=== PATIENT | female | born 1980 | race Caucasian/White ===

== ENCOUNTER → 2017-04-29 | Outpatient (CLI) | payer OTHER ==
[~2017-04-29] MED LIST: ACET500 PO; ALBU90OI INH; ALBU90OI6 INH; AMOX500 PO; AZIT250 PO; Amoxicillin875 MG PO; BENADRYL25 MG PO; BUPR150ER PO; BUPR150T2 PO; BUPR75; BUSP15 PO; Bactrim Ds Tab1 EACH PO; CETI10 PO; CLARITIN10 MG PO; CRUTCH4 USE; CYCL10 PO; Cefpodoxime Pr100 MG PO; Crutch1 EACH MISC; DIPH50 PO; DOXY100 PO; EPIPEN; Epipen0.3 MG/0.3 IM; FAMO20 PO; FLUSAL2505 IH; FLUT1DIS2; GABA100; GABA300 PO; HYDACE10B PO; HYDACE5; HYDACE5 PO; HYDR1TAB94 PO; IBUHYD PO; IBUP600 PO; IBUP800 PO; KETO10 PO; LACT10SY PO; METR500 PO; MUPI2TC TOP; NAPR500; NAPR500 PO; NYST237S MT; Norco 10-325 T1 EACH PO; Norco 5-325 Ta1 EACH PO; OTC MEDS; OXYACE5T PO; PARO10; PAROEX473 ML MM; PENVK500 PO; PHENA200 PO; PRED20 PO; PROACE100; PROACE100 PO; PROCODE120 PO; PROM25 PO; Pepcid40 MG PO; Prednisone20 MG PO; Pyridium200 MG PO; RXHYDACE PO; RXOXYACE PO; RXPHEN200 PO; Robaxin-750750 MG PO; SULTRIDS PO; SULTRISS PO; TRAM50; TRAM50 PO; TRAZ100 PO; TRAZ50 PO; TRIA80TC TOP; Ultram50 MG PO; Veetids 500500 MG PO; Ventolin/Prove6.7 GM INH; WELLBUTRIN PO; [UNRECOGNIZED DRUG - REMARK]
[2017-05-03 11:12] LABS: HPV Genotype 16 Not Detected (NOTDET); HPV Genotype 18 Not Detected (NOTDET)
[2017-05-05 09:18] LABS: HPV High Risk Other Not Detected (NOTDET)
== END | disposition home or self-care (01) ==
LOC: LAB 11:10
PROVIDERS: Obstetrics & Gynecology
DX: Z01.419 Encounter for gynecological examination (general) (routine) without abnormal findings (principal)
CPT/HCPCS: 87624; G0123

== ENCOUNTER → 2017-06-20 | Outpatient (CLI) | payer OTHER ==
[2017-06-22 14:27] LABS: Codeine Not Detected (NOTDET); Hydrocodone 99 ng/mL (NOTDET); Hydromorphone Not Detected (NOTDET); Morphine Not Detected (NOTDET); Norhydrocodone 159 ng/mL (NOTDET); Noroxycodone Not Detected (NOTDET)
== END ==
LOC: LAB SRC 09:57
PROVIDERS: Physician Assistant
DX: M23.91 Unspecified internal derangement of right knee (principal); G57.02 Lesion of sciatic nerve, left lower limb
CPT/HCPCS: G0480

== ENCOUNTER 2017-07-11 07:10 | Emergency (ER) | payer OTHER ==
[~2017-07-11] VITALS: Ht 162.6 cm; Wt 92.5 kg
[~2017-07-11 07:10] MED LIST changes: -ALBU90OI6 INH; -Amoxicillin875 MG PO; -CLARITIN10 MG PO; -Cefpodoxime Pr100 MG PO; -EPIPEN; -FLUT1DIS2; -KETO10 PO; -NYST237S MT; -PAROEX473 ML MM; -Pepcid40 MG PO; -TRAZ100 PO
[2017-07-11 08:09] LABS: Source, Urine Clean Catch
[2017-07-11 08:13] LABS: Bilirubin, Urine Neg (Neg); Blood, Urine 1+ (Neg); Glucose Qualitative, Urine Neg (Neg); Ketones, Urine Neg (Neg); Leukocyte Esterase, Urine 1+ (Neg); Nitrite, Urine Neg (Neg); Protein, Urine Neg (Neg); Specific Gravity, Urine 1.025 (1.003-1.022); Urobilinogen, Urine NORM (Normal)
[2017-07-11 08:21] LABS: Appearance, Urine Cloudy (Clear); Color, Urine Yellow (P-Yellow)
[2017-07-11 08:22] LABS: Squamous Epithelial Cells Many /hpf (Few)
[2017-07-11 08:23] LABS: Bacteria Many /hpf; Red Blood Cells, Urine 0-2 /hpf (0-2)
[2017-07-11] MEDS ORDERED: Cefpodoxime Pr100 MG PO (08:54)
[2017-07-11] MEDS ORDERED: Pyridium200 MG PO (08:54)
[2018-03-09] MEDS ORDERED: Ultram50 MG PO (08:43)
[2018-03-09] MEDS ORDERED: CYCL10 PO (08:43)
== END 2017-07-11 09:08 | disposition home or self-care (01) ==
LOC: ER 07:10
PROVIDERS: Emergency Medicine
DX: N39.0 Urinary tract infection, site not specified (principal); Z91.018 Allergy to other foods; Z79.899 Other long term (current) drug therapy; Z79.891 Long term (current) use of opiate analgesic; J45.909 Unspecified asthma, uncomplicated; F32.9 Major depressive disorder, single episode, unspecified; F17.210 Nicotine dependence, cigarettes, uncomplicated; Z85.41 Personal history of malignant neoplasm of cervix uteri
CPT/HCPCS: 81001; 81025; 87086; 96372; 99283; J1885

== ENCOUNTER 2017-11-10 12:16 | Emergency (ER) | payer OTHER ==
[~2017-11-10] VITALS: Ht 160 cm; Wt 94.3 kg
[~2017-11-10 12:16] MED LIST changes: +Cefpodoxime Pr100 MG PO
[2017-11-10] MEDS ORDERED: Amoxicillin875 MG PO (12:54)
[2017-11-10] MEDS ORDERED: NYST237S MT (12:54)
[2017-11-10] MEDS ORDERED: PAROEX473 ML MM (12:54)
[2017-11-10] MEDS ORDERED: IBUP800 PO (13:15)
[2017-11-10] MEDS ORDERED: CYCL10 PO (13:16)
== END 2017-11-10 13:38 | disposition home or self-care (01) ==
LOC: ER 12:16
DX: K02.9 Dental caries, unspecified (principal); Z91.048 Other nonmedicinal substance allergy status; Z79.899 Other long term (current) drug therapy; J45.909 Unspecified asthma, uncomplicated; F17.210 Nicotine dependence, cigarettes, uncomplicated
CPT/HCPCS: 99282

== ENCOUNTER 2017-11-13 13:32 | Emergency (ER) | payer OTHER ==
[~2017-11-13] VITALS: Ht 162.6 cm; Wt 94.3 kg
[~2017-11-13 13:32] MED LIST changes: +Amoxicillin875 MG PO; +NYST237S MT; +PAROEX473 ML MM
[2017-11-13] MEDS ORDERED: Ultram50 MG PO (14:57)
== END 2017-11-13 15:16 | disposition home or self-care (01) ==
LOC: ER 13:32
DX: S60.011A Contusion of right thumb without damage to nail, initial encounter (principal); J45.909 Unspecified asthma, uncomplicated; F32.9 Major depressive disorder, single episode, unspecified; F17.210 Nicotine dependence, cigarettes, uncomplicated; Z91.018 Allergy to other foods; Z79.899 Other long term (current) drug therapy; W23.0XXA Caught, crushed, jammed, or pinched between moving objects, initial encounter
CPT/HCPCS: 29125; 73100; 73140; 99283-25

== ENCOUNTER 2017-12-11 12:31 | Emergency (ER) | payer OTHER ==
[~2017-12-11] VITALS: Ht 160 cm; Wt 94.3 kg
[2017-12-11] MEDS ORDERED: KETO10 PO (12:56)
[2017-12-11] MEDS ORDERED: CLARITIN10 MG PO (12:56)
[2017-12-11] MEDS ORDERED: Prednisone20 MG PO (12:56)
[2017-12-11] MEDS ORDERED: Pepcid40 MG PO (12:56)
[2017-12-11] MEDS ORDERED: BENADRYL25 MG PO (13:18)
[2017-12-11] MEDS ORDERED: ALBU90OI6 INH (13:18)
[2017-12-11] MEDS ORDERED: TRAZ100 PO (13:18)
[2017-12-11] MEDS ORDERED: EPIPEN (13:19)
[2017-12-11] MEDS ORDERED: FLUT1DIS2 (13:20)
== END 2017-12-11 13:40 | disposition home or self-care (01) ==
LOC: ER 12:31
DX: T63.441A Toxic effect of venom of bees, accidental (unintentional), initial encounter (principal); J45.909 Unspecified asthma, uncomplicated; F32.9 Major depressive disorder, single episode, unspecified; F17.210 Nicotine dependence, cigarettes, uncomplicated; Z91.018 Allergy to other foods; Z79.899 Other long term (current) drug therapy
CPT/HCPCS: 96372; 99282; J1100; J1885

== ENCOUNTER 2018-05-01 07:34 | Emergency (ER) | payer OTHER ==
[~2018-05-01] VITALS: Ht 162.6 cm; Wt 94.3 kg
[~2018-05-01 07:34] MED LIST changes: +ALBU90OI6 INH; +CLARITIN10 MG PO; +EPIPEN; +FLUT1DIS2; +KETO10 PO; +Pepcid40 MG PO; +TRAZ100 PO
== END 2018-05-01 08:09 | disposition home or self-care (01) ==
LOC: ER 07:34
DX: M25.511 Pain in right shoulder (principal); R03.0 Elevated blood-pressure reading, without diagnosis of hypertension; Z88.8 Allergy status to other drugs, medicaments and biological substances; Z79.899 Other long term (current) drug therapy; F17.210 Nicotine dependence, cigarettes, uncomplicated
CPT/HCPCS: 96372; 99283-25; J1100; J1885

== ENCOUNTER 2018-05-30 07:34 | Inpatient (IN) | payer OTHER ==
[~2018-05-30] VITALS: Ht 162.6 cm; Wt 105.5 kg
[2018-05-30 08:15] LABS: BASOPHILS ABSOLUTE AUTO 0.03 K/mm3 (0.00-0.23); BASOPHILS PERCENT AUTO 0 % (0-2); EOSINOPHILS PERCENT AUTO 2 % (0-6); Hematocrit 37.4 % (33.0-51.0); Hemoglobin 12.5 g/dL (11.5-16.0); IMMATURE GRAN ABSOLUTE AUTO 0.06 K/mm3 (0.00-0.10); IMMATURE GRAN PERCENT AUTO 0 % (0-1); LYMPHOCYTES PERCENT AUTO 16 % (21-46); MONOCYTES PERCENT AUTO 8 % (4-13); Mean Corpuscular HGB 31.6 pg (26.0-34.0); Mean Corpuscular HGB Conc 33.4 g/dL (31.5-36.5); Mean Corpuscular Volume 94 fL (80-100); Mean Platelet Volume 11.1 fL (9.1-12.4); NEUTROPHILS ABSOLUTE AUTO 9.96 K/mm3 (1.96-9.15); NEUTROPHILS PERCENT AUTO 74 % (41-73); Platelet Count 198 K/mm3 (150-400); RDW Coefficient Variation 12.9 % (11.7-14.2); RDW Standard Deviation 44.8 fL (35.1-46.3); Red Blood Cell Count 3.96 M/mm3 (3.80-5.20); White Blood Cell Count 13.55 K/mm3 (4.00-11.30)
[2018-05-30 08:31] LABS: Source, Urine Catheter
[2018-05-30 08:33] LABS: Bilirubin, Urine Neg (Neg); Blood, Urine 2+ (Neg); Glucose Qualitative, Urine Neg (Neg); Ketones, Urine Neg (Neg); Leukocyte Esterase, Urine 3+ (Neg); Nitrite, Urine Neg (Neg); Protein, Urine Neg (Neg); Specific Gravity, Urine 1.005 (1.003-1.022); Urobilinogen, Urine NORM (Normal); pH, Urine 6.5 (5.0-8.0)
[2018-05-30 08:37] LABS: Appearance, Urine Clear (Clear); Color, Urine Yellow (P-Yellow)
[2018-05-30 08:37] LABS: Alanine Aminotransfer (ALT/SGP 83 U/L (12-78); Albumin, Blood 3.6 g/dL (3.4-5.0); Alk Phos 113 U/L (50-136); Anion Gap 7 mmol/L (6-16); Aspartate Aminotrans (AST/SGOT 37 U/L (12-37); Bilirubin, Total 0.8 mg/dL (0.1-1.0); Blood Urea Nitrogen 10 mg/dL (8-24); Bun/Creatinine Ratio 13.4 (12.0-20.0); CO2, Blood 25 mmol/L (21-32); Calcium, Blood 8.2 mg/dL (8.5-10.1); Chloride, Blood 103 mmol/L (98-108); Creatinine, Blood 0.75 mg/dL (0.40-1.00); Globulin, Blood 3.7 g/dL (2.2-4.0); Glomerular Filtration Rate >60 (60-); Glucose, Blood 104 mg/dL (70-99); Potassium, Blood 3.5 mmol/L (3.5-5.5); Sodium, Blood 135 mmol/L (136-145); Total Protein, Blood 7.3 g/dL (6.4-8.2)
[2018-05-30] MEDS ORDERED: MELO7.5 PO (08:46)
[2018-05-30 08:50] LABS: White Blood Cells, Urine TNTC /hpf (0-5)
[2018-05-30 08:51] LABS: Bacteria Mod /hpf; Squamous Epithelial Cells Mod /hpf (Few); Transitional Epithelial Cells Few /hpf (0-Rare)
[2018-05-30 09:25] LABS: Influenza A Negative (NEGATIVE); Influenza B Negative (NEGATIVE)
--- NOTE | 2018-05-30 10:20 | NUR ---
PT. ARRIVED TO FLOOR FROM ER. PT. CAME TO FLOOR WITH A LACTIC ACID OF 15.7, IN PAIN AND WITHOUT ANY MEDS AT ALL. TRIED TO CALL DR. FLEMING FOR MEDS AND CALL WENT TO VOICE MAIL. SETTLED PT. IN BED AND VITALS TAKEN. BP VERY HIGH AND STILL NO ORDERS OR UNABLE TO GET A HOLD OF DR. FLEMING. PT. HAS 1LITER OF LACTATED RINGERS BOLUSING.
--- NOTE | 2018-05-30 16:02 | NUR ---
PATIENT GAVE PERMISSION TO CLARIFIER OPERATOR HELPER TO PROVIDE CARE ON 05/31/2018.
--- NOTE | 2018-05-30 18:21 | NUR ---
PT. SITTING IN BED EATING DINNER, PT. REPORTS UNRESOLVED PAIN, DR. FLEMING MADE AWARE BUT HAS NOT ORDERED ANY THING ELSE FOR PAIN. BP IS STILL ELEVATED WITHOUT MEDICATION TO COVER. WILL NOTIFY DR. FLEMING ONCE AGAIN. NO OTHER NOTEABLE CHANGES THIS SHIFT.
[2018-05-31 05:13] LABS: BASOPHILS ABSOLUTE AUTO 0.05 K/mm3 (0.00-0.23); BASOPHILS PERCENT AUTO 0 % (0-2); EOSINOPHILS ABSOLUTE AUTO 0.28 K/mm3 (0.00-0.68); EOSINOPHILS PERCENT AUTO 2 % (0-6); Hematocrit 37.4 % (33.0-51.0); Hemoglobin 12.1 g/dL (11.5-16.0); IMMATURE GRAN ABSOLUTE AUTO 0.07 K/mm3 (0.00-0.10); IMMATURE GRAN PERCENT AUTO 1 % (0-1); LYMPHOCYTES PERCENT AUTO 21 % (21-46); MONOCYTES PERCENT AUTO 7 % (4-13); Mean Corpuscular HGB Conc 32.4 g/dL (31.5-36.5); Mean Corpuscular Volume 96 fL (80-100); NEUTROPHILS ABSOLUTE AUTO 7.95 K/mm3 (1.96-9.15); NEUTROPHILS PERCENT AUTO 69 % (41-73); RDW Coefficient Variation 12.8 % (11.7-14.2); White Blood Cell Count 11.55 K/mm3 (4.00-11.30)
[2018-05-31 05:18] LABS: Mean Platelet Volume 11.4 fL (9.1-12.4); Platelet Count 149 K/mm3 (150-400)
[2018-05-31 05:36] LABS: Anion Gap 6 mmol/L (6-16); Blood Urea Nitrogen 9 mg/dL (8-24); Bun/Creatinine Ratio 13.1 (12.0-20.0); CO2, Blood 27 mmol/L (21-32); Calcium, Blood 8.4 mg/dL (8.5-10.1); Chloride, Blood 105 mmol/L (98-108); Creatinine, Blood 0.69 mg/dL (0.40-1.00); Glomerular Filtration Rate >60 (60-); Glucose, Blood 93 mg/dL (70-99); Potassium, Blood 3.9 mmol/L (3.5-5.5); Sodium, Blood 138 mmol/L (136-145)
--- NOTE | 2018-05-31 05:40 | NUR ---
SHIFT SUMMARY PT ADMITTED WITH SEPSIS UTI. FULL CODE. REGULAR DIET. 20G IV TO R HAND. INDEPENDENT. MEDS WHOLE WITH WATER. AT BEDSIDE. THE PT PRESENTED TO THE ED WITH GENERALIZED BODY ACHES AND WEAKNESS FOR THE PAST FEW DAYS. THE PT REPORTED DYSURIA, URGENCY, FREQUENCY AND PAIN. THE PT IS POSITIVE FOR RECURRENT UTI'S WITH LAS ONE ABOUT 1.5 WEEKA AGO. PT DIAGNOSED WITH SEVERE SEPSIS SECONDARY TO UTI WITH A LACTIC OF 15.6 UPON ADMIT. PT DID VOICE SOME CONCEARNS REGARDING MEDICATIONS AND MULTIPLE CHANGES THAT NEEDED TO BE MADE. ADVISED PT TO DISCUSS WITH MD IN THE AM. PT APPEARED TO SLEEP COMFORTABLY MOST OF THE NIGHT. PT AWAKE AT THIS TIME AND APPEARS UPSET BECAUSE NORCO NOT DUE AND ONLY OFFERED Q6. OFFERED PT WARM BLANKET AND PT REFUSED, OFFERED PT IBUPROFEN PER ORDERS AND PT INITIALLY REFUSED BUT EVENTUALLY WAS AGREEABLE. PT APPEARED ONLY TO WANT TO TAKE NARCOTICS. ALSO OFFERED PRN MUSCLE RELAXER WHICH PT AGAIN REFUSED. NO APPARENT SIGNS OF ACUTE DISTRESS. ABLE TO MAKE NEEDS KNOWN AND CALL LIGHT IN REACH.
--- NOTE | 2018-05-31 05:48 | NUR ---
POSITIVE BLOOD CULTURE PT WITH GRAM POSITIVE BACILLI. PHARMACISTEVELYNE REPORTED THAT PTS CURRENT ANTIBIOTIC REGIMEN PROVIDES GOOD COVERAGE.
[2018-05-31] MEDS ORDERED: DULO30 PO (10:28)
[2018-05-31] MEDS ORDERED: BUPR150ER PO (10:29)
--- NOTE | 2018-05-31 17:20 | NUR ---
SHIFT SUMMARY- PT C/O GENERALIZED PAIN THAT IS THE MOST SEVERE IN HER LOWER BACK AND RLQ OF ABDOMEN. MEDS GIVEN PER EMAR. DR. FRANK INCREASED PT'S NORCO TO Q4HP. PT DENIES N/V. PT DENIES SOB. RESP E/U ON RA. PT'S BP THIS PM 161/103. PT REPORTS PAIN 10/10. HYDRALAZINE AND NORCO GIVEN PER EMAR. WILL CONTINUE TO MONITOR BP. PT'S MED REC UPDATED AND COMPLETE. PT INDEPENDENT IN THE ROOM AND HAS GONE OUTSIDE TO "GET SOME FRESH AIR" MULTIPLE TIMES THIS SHIFT. REMINDED PT IF SHE IS GOING TO SMOKE THAT SHE NEEDS TO REMOVE HER NICOTENE PATCH TO AVOID NICOTENE OVERDOSE. PT REPORTS SHE IS NOT SMOKING. PT'S AND TWO DAUGHTERS IN TO VISIT THIS PM. NO OTHER SIGNIFICANT CHANGES THIS SHIFT.
[2018-06-01 05:22] LABS: BASOPHILS ABSOLUTE AUTO 0.04 K/mm3 (0.00-0.23); BASOPHILS PERCENT AUTO 0 % (0-2); EOSINOPHILS PERCENT AUTO 4 % (0-6); Hemoglobin 12.2 g/dL (11.5-16.0); IMMATURE GRAN ABSOLUTE AUTO 0.06 K/mm3 (0.00-0.10); IMMATURE GRAN PERCENT AUTO 1 % (0-1); LYMPHOCYTES ABSOLUTE AUTO 3.17 K/mm3 (0.84-5.20); LYMPHOCYTES PERCENT AUTO 30 % (21-46); MONOCYTES ABSOLUTE AUTO 0.84 K/mm3 (0.16-1.47); MONOCYTES PERCENT AUTO 8 % (4-13); Mean Corpuscular HGB 31.1 pg (26.0-34.0); Mean Corpuscular Volume 94 fL (80-100); Mean Platelet Volume 10.8 fL (9.1-12.4); NEUTROPHILS ABSOLUTE AUTO 5.99 K/mm3 (1.96-9.15); NEUTROPHILS PERCENT AUTO 57 % (41-73); Platelet Count 214 K/mm3 (150-400); RDW Coefficient Variation 12.9 % (11.7-14.2); RDW Standard Deviation 44.5 fL (35.1-46.3); Red Blood Cell Count 3.92 M/mm3 (3.80-5.20)
--- NOTE | 2018-06-01 05:25 | NUR ---
SHIFT SUMMARY NO APPARENT ACUTE CHANGES. PAIN MANAGMENT APPARENTLY CONTINUES TO BE A PROBLEM DESPITE THE INCREASE OF NORCO FROM Q6 TO Q4. PT REQESTED TO HAVE HAVE ALL BEDTIME MEDICATIONS GIVEN AT THE SAME TIME PAIN PILL THAT WAS DUE AT 2044. THE PT WAS ABLE TO SLEEP UNTIL JUST BEFORE 0300 WHEN PT HIT CALL LIGHT FOR ADDITIONAL PAIN MEDICATION. ADMINISTERED NORCO AND ADVIL TOGETHER TO ADJUNCT AND PT DID APPEAR TO FALL BACK TO SLEEP. THE PT APPEARS TO BE SLEEPING COMFORTABLY AT THIS TIME WITH NO APPARENT SIGNS OF ACUTE DISTRESS. DAUGHTER AT PT BEDSIDE. ABLE TO MAKE NEEDS KNOWN AND CALL LIGHT IN REACH.
[2018-06-01 05:45] LABS: Albumin, Blood 3.4 g/dL (3.4-5.0); Anion Gap 8 mmol/L (6-16); Blood Urea Nitrogen 11 mg/dL (8-24); Bun/Creatinine Ratio 13.1 (12.0-20.0); CO2, Blood 28 mmol/L (21-32); Calcium, Blood 8.8 mg/dL (8.5-10.1); Chloride, Blood 103 mmol/L (98-108); Creatinine, Blood 0.84 mg/dL (0.40-1.00); Glomerular Filtration Rate >60 (60-); Glucose, Blood 105 mg/dL (70-99); Potassium, Blood 3.7 mmol/L (3.5-5.5); Sodium, Blood 139 mmol/L (136-145)
--- NOTE | 2018-06-01 18:16 | NUR ---
SHIFT SUMMARY PT HAS HAD NO ACUTE CHANGES THIS SHIFT, MEDICATED PER MAR FOR PAIN, PT REPORTS 7/10 PAIN AFTER MEDS T/O SHIFT. PT BEDRESTING AT THIS TIME W/DAUGHTER AT BEDSIDE, WILL CONT TO MONITOR UNTIL REPORT GIVEN TO NOC RN.
--- NOTE | 2018-06-02 04:06 | NUR ---
SHIFT SUMMARY: PT IS ALERT AND ORIENTED. PT IS CALM AND COOPERATIVE WITH CARE. PT CALLS APPROPRIATELY. PT IS INDEPENDENT IN THE ROOM. PT'S DAUGHTER IN THE ROOM OVERNIGHT. PT REPORTS PAIN ON SEVERAL OCCASIONS, MEDICATING PER EMAR. PT DENIES NAUSEA, VOMITING, AND SOB. POSSIBLE DC TODAY. NO ACUTE CHANGES OR COMPLICATIONS THIS SHIFT. BED IN LOW POSITION, CALL LIGHT WITHIN REACH. WILL REPORT TO DAY NURSE.
[2018-06-02] MEDS ORDERED: ACIDOPHILUS PR1 EAC1 PO (13:47)
[2018-06-02] MEDS ORDERED: Nicoderm Cq1 EAC1 TD (13:49)
[2018-06-02] MEDS ORDERED: LEVO750 PO (13:50)
[2018-06-02] MEDS ORDERED: TRAM50 PO (13:51)
--- NOTE | 2018-06-02 14:19 | NUR ---
SHIFT SUMMARY PT A&OX4. ANXIOUS AT TIME, BUT COOPERATIVE WITH CARE. PT RESTING IN BED DURING SHIFT. IND IN ROOM, PT UP WALKING T/O HALLS WITH FAMILY. PT REPORTS PAIN STARTING IN BACK AND RADIATING T/O BODY AND CRAMPING WHILE URINATING, NOTIFIED DR DELGADO, MEDICATED PER EMAR. PT DENIES SOB AND N/V DURING SHIFT. PT RECEIVING IV ANTIBIOTICS. ELEVATED BP, DR DELGADO NOTIFIED, NO NEW ORDERS, DISCUSSED BP WITH PT AT BEDSIDE, OTHER VSS. NO OTHER ACUTE CHANGES NOTED DURING SHIFT. PT/FAMILY EDUCATED ON DISCHARGE INSTRUCTIONS, MEDICATIONS AND FOLLOW UP APPOINTMENTS. MEDICATIONS FAXED TO [facility] PER PT REQUEST. PT LEFT ROOM VIA WHEELCHAIR AT 1413. PT STABLE UPON DISCHARGE.
== END 2018-06-02 14:16 | disposition home or self-care (01) | DRG 872 ==
LOC: ER 07:34 → MEDS 09:29 → ENPENDDIS 06-02 13:45 → MEDS 06-02 14:16
PROVIDERS: Emergency Medicine; Family Medicine; ADMIT Internal Medicine
DX: A41.51 Sepsis due to Escherichia coli [E. coli] (principal); N39.0 Urinary tract infection, site not specified; N12 Tubulo-interstitial nephritis, not specified as acute or chronic; E87.1 Hypo-osmolality and hyponatremia; R65.20 Severe sepsis without septic shock; I10 Essential (primary) hypertension; D69.6 Thrombocytopenia, unspecified; G62.9 Polyneuropathy, unspecified; F17.200 Nicotine dependence, unspecified, uncomplicated; E66.9 Obesity, unspecified; J45.909 Unspecified asthma, uncomplicated; K21.9 Gastro-esophageal reflux disease without esophagitis; F32.9 Major depressive disorder, single episode, unspecified; F41.9 Anxiety disorder, unspecified; G89.29 Other chronic pain; M54.40 Lumbago with sciatica, unspecified side; Z87.440 Personal history of urinary (tract) infections; Z91.018 Allergy to other foods; Z79.1 Long term (current) use of non-steroidal anti-inflammatories (NSAID); Z79.899 Other long term (current) drug therapy
CPT/HCPCS: 36415; 76770; 80048; 80053; 80069; 81001; 81025; 83605; 85025; 87040; 87077; 87086; 87186; 87804; 94760; 96365; 96366; 96375; 99285-25; J0360; J0696; J1885; J7030; J7120; P9612

== ENCOUNTER 2018-07-18 08:36 | Emergency (ER) | payer OTHER ==
[~2018-07-18] VITALS: Ht 165.1 cm; Wt 90.7 kg
[~2018-07-18 08:36] MED LIST changes: +ACIDOPHILUS PR1 EAC1 PO; +DULO30 PO; +LEVO750 PO; +MELO7.5 PO; +Nicoderm Cq1 EAC1 TD
[2018-07-18] MEDS ORDERED: MELO7.5 PO (09:08)
[2018-07-18 10:03] LABS: U Amphetamine Screen Not Detected; U Barbituate Screen Not Detected; U Benzodiazapine Screen Not Detected; U Buprenorphine Screen Not Detected; U Cannabinoids Screen Not Detected; U Cocaine Screen Not Detected; U Methadone Screen Not Detected; U Methamphetamine Screen Not Detected; U Opiates Screen Not Detected; U Oxycodone Screen Not Detected; U Phencyclidine Screen Not Detected; U Propoxyphene Screen Not Detected
[2018-07-18 10:25] LABS: Influenza A Negative (NEGATIVE); Influenza B Negative (NEGATIVE)
[2018-07-18 10:56] LABS: BASOPHILS ABSOLUTE AUTO 0.03 K/mm3 (0.00-0.23); BASOPHILS PERCENT AUTO 0 % (0-2); EOSINOPHILS ABSOLUTE AUTO 0.36 K/mm3 (0.00-0.68); EOSINOPHILS PERCENT AUTO 4 % (0-6); Hematocrit 39.8 % (33.0-51.0); Hemoglobin 13.2 g/dL (11.5-16.0); IMMATURE GRAN ABSOLUTE AUTO 0.05 K/mm3 (0.00-0.10); IMMATURE GRAN PERCENT AUTO 1 % (0-1); LYMPHOCYTES ABSOLUTE AUTO 2.65 K/mm3 (0.84-5.20); LYMPHOCYTES PERCENT AUTO 26 % (21-46); MONOCYTES ABSOLUTE AUTO 0.56 K/mm3 (0.16-1.47); MONOCYTES PERCENT AUTO 5 % (4-13); Mean Corpuscular HGB 31.5 pg (26.0-34.0); Mean Corpuscular HGB Conc 33.2 g/dL (31.5-36.5); Mean Corpuscular Volume 95 fL (80-100); Mean Platelet Volume 10.8 fL (9.1-12.4); NEUTROPHILS ABSOLUTE AUTO 6.73 K/mm3 (1.96-9.15); NEUTROPHILS PERCENT AUTO 65 % (41-73); Platelet Count 244 K/mm3 (150-400); RDW Coefficient Variation 13.1 % (11.7-14.2); RDW Standard Deviation 45.1 fL (35.1-46.3); Red Blood Cell Count 4.19 M/mm3 (3.80-5.20); White Blood Cell Count 10.38 K/mm3 (4.00-11.30)
[2018-07-18 11:22] LABS: Alanine Aminotransfer (ALT/SGP 31 U/L (12-78); Albumin, Blood 3.7 g/dL (3.4-5.0); Albumin/Globulin Ratio 1.1 (0.8-1.8); Alk Phos 86 U/L (50-136); Anion Gap 8 mmol/L (6-16); Aspartate Aminotrans (AST/SGOT 16 U/L (12-37); Bilirubin, Total 0.3 mg/dL (0.1-1.0); Blood Urea Nitrogen 13 mg/dL (8-24); Bun/Creatinine Ratio 18.4 (12.0-20.0); CO2, Blood 24 mmol/L (21-32); CPK Creatine Kinase 58 U/L (26-193); Calcium, Blood 8.7 mg/dL (8.5-10.1); Chloride, Blood 107 mmol/L (98-108); Creatinine, Blood 0.71 mg/dL (0.40-1.00); Globulin, Blood 3.5 g/dL (2.2-4.0); Glomerular Filtration Rate >60 (60-); Glucose, Blood 103 mg/dL (70-99); Potassium, Blood 3.7 mmol/L (3.5-5.5); Sodium, Blood 139 mmol/L (136-145); Total Protein, Blood 7.2 g/dL (6.4-8.2)
[2018-07-18 11:25] LABS: Thyroid Stimulating Hormone 0.879 uIU/mL (0.360-4.800)
[2018-07-18 11:30] LABS: Creatine Kinase MB <1.0 ng/mL (0.0-3.6); Creatine Kinase MB Index Unable to Calculate (0.0-4.0)
[2018-07-18] MEDS ORDERED: IBUP400 PO (12:00)
== END 2018-07-18 12:17 | disposition home or self-care (01) ==
LOC: ER 08:36
PROVIDERS: Emergency Medicine
DX: M79.10 Myalgia, unspecified site (principal); Z91.018 Allergy to other foods; Z79.899 Other long term (current) drug therapy; J45.909 Unspecified asthma, uncomplicated; F32.9 Major depressive disorder, single episode, unspecified; F17.210 Nicotine dependence, cigarettes, uncomplicated; Z85.41 Personal history of malignant neoplasm of cervix uteri
CPT/HCPCS: 36415; 80053; 82550; 82553; 84443; 85025; 87804; 96361; 96374; 96375; 99283-25; J1200; J1885; J2765; J7120

== ENCOUNTER → 2018-07-19 | Outpatient (CLI) | payer OTHER ==
[~2018-07-19] MED LIST changes: +IBUP400 PO
== END | disposition home or self-care (01) ==
LOC: LAB EV 15:26 → LAB SHORT 15:26
DX: N39.0 Urinary tract infection, site not specified (principal)
CPT/HCPCS: 87086

== ENCOUNTER 2018-11-18 10:35 | Emergency (ER) | payer OTHER ==
[~2018-11-18] VITALS: Ht 160 cm; Wt 103.4 kg
[~2018-11-18 10:35] MED LIST changes: +BUSP10 PO; -BUSP15 PO
[2018-11-18] MEDS ORDERED: NAPR550 PO (10:56)
== END 2018-11-18 11:11 | disposition home or self-care (01) ==
LOC: ER 10:35
DX: K08.89 Other specified disorders of teeth and supporting structures (principal); J45.909 Unspecified asthma, uncomplicated; F32.9 Major depressive disorder, single episode, unspecified; M54.9 Dorsalgia, unspecified; G89.29 Other chronic pain; F17.210 Nicotine dependence, cigarettes, uncomplicated; Z91.018 Allergy to other foods; Z79.899 Other long term (current) drug therapy
CPT/HCPCS: 64400; 99282-25

== ENCOUNTER 2018-12-15 06:24 | Emergency (ER) | payer OTHER ==
[~2018-12-15] VITALS: Ht 162.6 cm; Wt 103.4 kg
[~2018-12-15 06:24] MED LIST changes: +NAPR550 PO
[2018-12-15] MEDS ORDERED: GABA300 PO (08:05)
[2018-12-15] MEDS ORDERED: Mobic15 MG PO (08:06)
[2018-12-15] MEDS ORDERED: Robaxin-750750 MG PO (09:02)
[2018-12-15] MEDS ORDERED: Norco 5-325 Ta1 EACH PO (09:02)
== END 2018-12-15 09:17 | disposition home or self-care (01) ==
LOC: ER 06:24
DX: M62.830 Muscle spasm of back (principal); G89.29 Other chronic pain; Z88.5 Allergy status to narcotic agent; Z91.018 Allergy to other foods; Z79.899 Other long term (current) drug therapy; J45.909 Unspecified asthma, uncomplicated; F32.9 Major depressive disorder, single episode, unspecified; F17.200 Nicotine dependence, unspecified, uncomplicated
CPT/HCPCS: 96372; 99283-25; A9270-GY; J1100

== ENCOUNTER 2019-01-19 06:59 | Emergency (ER) | payer OTHER ==
[~2019-01-19] VITALS: Ht 162.6 cm; Wt 99.3 kg
[~2019-01-19 06:59] MED LIST changes: +Mobic15 MG PO
== END 2019-01-19 13:55 | disposition left against medical advice (07) ==
LOC: ER 06:59
DX: M54.42 Lumbago with sciatica, left side (principal); J45.909 Unspecified asthma, uncomplicated; F32.9 Major depressive disorder, single episode, unspecified; Z85.41 Personal history of malignant neoplasm of cervix uteri; F17.200 Nicotine dependence, unspecified, uncomplicated; Z88.8 Allergy status to other drugs, medicaments and biological substances; Z91.018 Allergy to other foods; Z88.5 Allergy status to narcotic agent; Z79.899 Other long term (current) drug therapy; Z79.1 Long term (current) use of non-steroidal anti-inflammatories (NSAID)
CPT/HCPCS: 96372; 99283-25; J1100

== ENCOUNTER 2019-02-12 07:21 | Emergency (ER) | payer OTHER ==
[~2019-02-12] VITALS: Ht 162.6 cm; Wt 102.1 kg
[2019-02-12] MEDS ORDERED: Robaxin-750750 MG PO (09:11)
[2019-02-12] MEDS ORDERED: IBUP800 PO (09:11)
== END 2019-02-12 09:31 | disposition home or self-care (01) ==
LOC: ER 07:21
DX: M54.2 Cervicalgia (principal); M54.6 Pain in thoracic spine; M54.5 Low back pain; M53.3 Sacrococcygeal disorders, not elsewhere classified; G89.29 Other chronic pain; J45.909 Unspecified asthma, uncomplicated; F32.9 Major depressive disorder, single episode, unspecified; F17.200 Nicotine dependence, unspecified, uncomplicated; Z91.018 Allergy to other foods; Z88.6 Allergy status to analgesic agent; Z79.899 Other long term (current) drug therapy
CPT/HCPCS: 72128; 72131; 99283-25; A9270-GY

== ENCOUNTER 2019-03-17 20:32 | Emergency (ER) | payer OTHER ==
[~2019-03-17] VITALS: Ht 160 cm; Wt 103.0 kg
== END 2019-03-17 21:47 | disposition home or self-care (01) ==
LOC: ER 20:32
DX: S32.10XA Unspecified fracture of sacrum, initial encounter for closed fracture (principal); M54.5 Low back pain; G89.29 Other chronic pain; J45.909 Unspecified asthma, uncomplicated; F32.9 Major depressive disorder, single episode, unspecified; F17.200 Nicotine dependence, unspecified, uncomplicated; Z85.41 Personal history of malignant neoplasm of cervix uteri; Z91.018 Allergy to other foods; Z88.8 Allergy status to other drugs, medicaments and biological substances; Z79.899 Other long term (current) drug therapy; W19.XXXA Unspecified fall, initial encounter
CPT/HCPCS: 99283; A9270

== ENCOUNTER 2019-03-21 07:36 | Emergency (ER) | payer OTHER ==
[~2019-03-21] VITALS: Ht 162.6 cm; Wt 102.1 kg
== END 2019-03-21 09:29 | disposition home or self-care (01) ==
LOC: ER 07:36
DX: S30.0XXA Contusion of lower back and pelvis, initial encounter (principal); J45.909 Unspecified asthma, uncomplicated; F32.9 Major depressive disorder, single episode, unspecified; F17.200 Nicotine dependence, unspecified, uncomplicated; Z85.41 Personal history of malignant neoplasm of cervix uteri; Z88.8 Allergy status to other drugs, medicaments and biological substances; Z91.018 Allergy to other foods; Z79.899 Other long term (current) drug therapy; Z79.891 Long term (current) use of opiate analgesic; W19.XXXA Unspecified fall, initial encounter
CPT/HCPCS: 72192; 99283-25

== ENCOUNTER 2019-04-16 07:18 | Emergency (ER) | payer OTHER ==
[~2019-04-16] VITALS: Ht 160 cm; Wt 102.1 kg
[2019-04-16] MEDS ORDERED: Buspirone HCl15 MG PO (07:32)
[2019-04-16] MEDS ORDERED: DULO30 PO (07:33)
[2019-04-16] MEDS ORDERED: BUPROPION XL150 M1 PO (07:33)
[2019-04-16] MEDS ORDERED: VARE1 (07:33)
[2019-04-16 07:44] LABS: Source, Urine Clean Catch
[2019-04-16 07:47] LABS: Appearance, Urine Clear (Clear); Bilirubin, Urine Neg (Neg); Blood, Urine Neg (Neg); Color, Urine Yellow (P-Yellow); Glucose Qualitative, Urine Neg (Neg); Ketones, Urine Neg (Neg); Leukocyte Esterase, Urine 2+ (Neg); Nitrite, Urine Neg (Neg); Protein, Urine Neg (Neg); Urobilinogen, Urine NORM (Normal)
[2019-04-16 07:58] LABS: BASOPHILS ABSOLUTE AUTO 0.06 K/mm3 (0.00-0.23); BASOPHILS PERCENT AUTO 1 % (0-2); EOSINOPHILS ABSOLUTE AUTO 0.41 K/mm3 (0.00-0.68); EOSINOPHILS PERCENT AUTO 3 % (0-6); Hematocrit 42.3 % (33.0-51.0); Hemoglobin 13.8 g/dL (11.5-16.0); IMMATURE GRAN ABSOLUTE AUTO 0.05 K/mm3 (0.00-0.10); IMMATURE GRAN PERCENT AUTO 0 % (0-1); LYMPHOCYTES ABSOLUTE AUTO 3.05 K/mm3 (0.84-5.20); LYMPHOCYTES PERCENT AUTO 24 % (21-46); MONOCYTES ABSOLUTE AUTO 0.75 K/mm3 (0.16-1.47); MONOCYTES PERCENT AUTO 6 % (4-13); Mean Corpuscular HGB 31.2 pg (26.0-34.0); Mean Corpuscular HGB Conc 32.6 g/dL (31.5-36.5); Mean Corpuscular Volume 96 fL (80-100); Mean Platelet Volume 10.8 fL (9.1-12.4); NEUTROPHILS ABSOLUTE AUTO 8.42 K/mm3 (1.96-9.15); NEUTROPHILS PERCENT AUTO 66 % (41-73); Platelet Count 233 K/mm3 (150-400); RDW Coefficient Variation 13.1 % (11.7-14.2); Red Blood Cell Count 4.43 M/mm3 (3.80-5.20); White Blood Cell Count 12.74 K/mm3 (4.00-11.30)
[2019-04-16 07:59] LABS: White Blood Cells, Urine 25-50 /hpf (0-5)
[2019-04-16 08:00] LABS: Bacteria Many /hpf; Red Blood Cells, Urine 0-2 /hpf (0-2); Squamous Epithelial Cells Mod /hpf (Few)
[2019-04-16 08:16] LABS: Alanine Aminotransfer (ALT/SGP 39 U/L (12-78); Albumin, Blood 3.9 g/dL (3.4-5.0); Albumin/Globulin Ratio 1.1 (0.8-1.8); Alk Phos 92 U/L (50-136); Anion Gap 9 mmol/L (6-16); Aspartate Aminotrans (AST/SGOT 25 U/L (12-37); Bilirubin, Total 0.5 mg/dL (0.1-1.0); Blood Urea Nitrogen 11 mg/dL (8-24); CO2, Blood 24 mmol/L (21-32); Calcium, Blood 8.7 mg/dL (8.5-10.1); Chloride, Blood 103 mmol/L (98-108); Creatinine, Blood 0.79 mg/dL (0.40-1.00); Globulin, Blood 3.7 g/dL (2.2-4.0); Glomerular Filtration Rate >60 (60-); Glucose, Blood 95 mg/dL (70-99); Potassium, Blood 3.8 mmol/L (3.5-5.5); Sodium, Blood 136 mmol/L (136-145); Total Protein, Blood 7.6 g/dL (6.4-8.2)
[2019-04-16] MEDS ORDERED: Percocet 5-3251 EACH PO (09:08)
[2019-04-16] MEDS ORDERED: IBUP600 PO (09:08)
[2019-04-16] MEDS ORDERED: CEFD300 PO (09:08)
== END 2019-04-16 09:22 | disposition home or self-care (01) ==
LOC: ER 07:18
PROVIDERS: Emergency Medicine
DX: N12 Tubulo-interstitial nephritis, not specified as acute or chronic (principal); K21.9 Gastro-esophageal reflux disease without esophagitis; F41.9 Anxiety disorder, unspecified; F32.9 Major depressive disorder, single episode, unspecified; J45.909 Unspecified asthma, uncomplicated; F17.200 Nicotine dependence, unspecified, uncomplicated; Z91.018 Allergy to other foods; Z88.5 Allergy status to narcotic agent; Z79.899 Other long term (current) drug therapy
CPT/HCPCS: 36415; 74176; 80053; 81001; 81025; 83690; 85025; 87077; 87086; 87186; 96361; 96365; 96375; 96376; 99284-25; J0696; J3010; J7030

== ENCOUNTER 2019-04-27 07:31 | Emergency (ER) | payer OTHER ==
[~2019-04-27] VITALS: Ht 162.6 cm; Wt 102.1 kg
[~2019-04-27 07:31] MED LIST changes: +BUPROPION XL150 M1 PO; +Buspirone HCl15 MG PO; +CEFD300 PO; +Percocet 5-3251 EACH PO; +VARE1
[2019-04-27] MEDS ORDERED: CYCL10 PO (07:45)
[2019-04-27] MEDS ORDERED: Percocet 5-3251 EACH PO (08:11)
== END 2019-04-27 08:45 | disposition home or self-care (01) ==
LOC: ER 07:31
DX: S39.92XA Unspecified injury of lower back, initial encounter (principal); R10.2 Pelvic and perineal pain; J45.909 Unspecified asthma, uncomplicated; K21.9 Gastro-esophageal reflux disease without esophagitis; F32.9 Major depressive disorder, single episode, unspecified; F41.9 Anxiety disorder, unspecified; F17.200 Nicotine dependence, unspecified, uncomplicated; Z91.018 Allergy to other foods; Z88.5 Allergy status to narcotic agent; Z79.899 Other long term (current) drug therapy; X50.0XXA Overexertion from strenuous movement or load, initial encounter
CPT/HCPCS: 99283

== ENCOUNTER → 2019-05-07 | Outpatient (CLI) | payer OTHER ==
[~2019-05-07] MED LIST changes: +LIDO700A20 TOP; +Pyridium200 MG
[2019-05-07 13:09] LABS: Bilirubin, Urine Neg (Neg); Blood, Urine Neg (Neg); Glucose Qualitative, Urine Neg (Neg); Ketones, Urine Neg (Neg); Leukocyte Esterase, Urine Neg (Neg); Nitrite, Urine Neg (Neg); Protein, Urine Neg (Neg); Specific Gravity, Urine 1.015 (1.003-1.022); Urobilinogen, Urine NORM (Normal)
[2019-05-07 13:44] LABS: Appearance, Urine Clear (Clear); Color, Urine Yellow (P-Yellow)
== END ==
LOC: LAB SRC 09:30 → LAB SHORT 09:30
PROVIDERS: Nurse Practitioner Family
DX: R10.9 Unspecified abdominal pain (principal)
CPT/HCPCS: 81003

== ENCOUNTER 2019-05-08 09:43 | Emergency (ER) | payer OTHER ==
[~2019-05-08] VITALS: Ht 162.6 cm; Wt 103.9 kg
[~2019-05-08 09:43] MED LIST changes: -LIDO700A20 TOP; -Pyridium200 MG
[2019-05-08 10:22] LABS: Source, Urine Clean Catch
[2019-05-08 10:27] LABS: Appearance, Urine Clear (Clear); Bilirubin, Urine Neg (Neg); Blood, Urine Neg (Neg); Color, Urine Yellow (P-Yellow); Glucose Qualitative, Urine Neg (Neg); Ketones, Urine Neg (Neg); Leukocyte Esterase, Urine Neg (Neg); Nitrite, Urine Neg (Neg); Protein, Urine Neg (Neg); Urobilinogen, Urine NORM (Normal)
[2019-05-08 10:32] LABS: BASOPHILS ABSOLUTE AUTO 0.06 K/mm3 (0.00-0.23); BASOPHILS PERCENT AUTO 1 % (0-2); EOSINOPHILS ABSOLUTE AUTO 0.43 K/mm3 (0.00-0.68); EOSINOPHILS PERCENT AUTO 4 % (0-6); Hematocrit 45.2 % (33.0-51.0); Hemoglobin 14.6 g/dL (11.5-16.0); IMMATURE GRAN ABSOLUTE AUTO 0.05 K/mm3 (0.00-0.10); IMMATURE GRAN PERCENT AUTO 0 % (0-1); LYMPHOCYTES ABSOLUTE AUTO 3.16 K/mm3 (0.84-5.20); LYMPHOCYTES PERCENT AUTO 26 % (21-46); MONOCYTES ABSOLUTE AUTO 0.43 K/mm3 (0.16-1.47); MONOCYTES PERCENT AUTO 4 % (4-13); Mean Corpuscular HGB 31.3 pg (26.0-34.0); Mean Corpuscular HGB Conc 32.3 g/dL (31.5-36.5); Mean Corpuscular Volume 97 fL (80-100); Mean Platelet Volume 10.8 fL (9.1-12.4); NEUTROPHILS ABSOLUTE AUTO 7.95 K/mm3 (1.96-9.15); NEUTROPHILS PERCENT AUTO 66 % (41-73); Platelet Count 262 K/mm3 (150-400); RDW Coefficient Variation 12.9 % (11.7-14.2); RDW Standard Deviation 46.6 fL (35.1-46.3); Red Blood Cell Count 4.66 M/mm3 (3.80-5.20); White Blood Cell Count 12.08 K/mm3 (4.00-11.30)
[2019-05-08 10:50] LABS: Alanine Aminotransfer (ALT/SGP 47 U/L (12-78); Albumin, Blood 3.9 g/dL (3.4-5.0); Alk Phos 94 U/L (50-136); Anion Gap 6 mmol/L (6-16); Aspartate Aminotrans (AST/SGOT 20 U/L (12-37); Bilirubin, Total 0.4 mg/dL (0.1-1.0); Blood Urea Nitrogen 12 mg/dL (8-24); Bun/Creatinine Ratio 15.5 (12.0-20.0); CO2, Blood 25 mmol/L (21-32); Calcium, Blood 9.3 mg/dL (8.5-10.1); Chloride, Blood 106 mmol/L (98-108); Creatinine, Blood 0.77 mg/dL (0.40-1.00); Globulin, Blood 3.9 g/dL (2.2-4.0); Glomerular Filtration Rate >60 (60-); Glucose, Blood 153 mg/dL (70-99); Potassium, Blood 4.1 mmol/L (3.5-5.5); Sodium, Blood 137 mmol/L (136-145); Total Protein, Blood 7.8 g/dL (6.4-8.2)
[2019-05-08 12:19] LABS: Influenza A Negative (NEGATIVE); Influenza B Negative (NEGATIVE)
[2019-05-08] MEDS ORDERED: LIDO700A20 TOP (12:31)
== END 2019-05-08 13:00 | disposition home or self-care (01) ==
LOC: ER 09:43
PROVIDERS: Emergency Medicine
DX: R10.9 Unspecified abdominal pain (principal); J45.909 Unspecified asthma, uncomplicated; F32.9 Major depressive disorder, single episode, unspecified; K21.9 Gastro-esophageal reflux disease without esophagitis; F41.9 Anxiety disorder, unspecified; F17.200 Nicotine dependence, unspecified, uncomplicated; Z91.018 Allergy to other foods; Z88.5 Allergy status to narcotic agent; Z79.899 Other long term (current) drug therapy
CPT/HCPCS: 36415; 74177; 80053; 81003; 81025; 83690; 85025; 87804; 96360-59; 99284-25; J2405; J7030; Q9967

== ENCOUNTER 2019-05-15 13:43 | Emergency (ER) | payer OTHER ==
[~2019-05-15] VITALS: Ht 165.1 cm; Wt 172.4 kg
[~2019-05-15 13:43] MED LIST changes: +LIDO700A20 TOP
[2019-05-15] MEDS ORDERED: Pyridium200 MG (14:06)
[2019-05-15] MEDS ORDERED: Norco 5-325 Ta1 EACH PO (17:33)
== END 2019-05-15 17:50 | disposition home or self-care (01) ==
LOC: ER 13:43
DX: S30.0XXA Contusion of lower back and pelvis, initial encounter (principal); F32.9 Major depressive disorder, single episode, unspecified; J45.909 Unspecified asthma, uncomplicated; F17.200 Nicotine dependence, unspecified, uncomplicated; Z88.6 Allergy status to analgesic agent; Z88.8 Allergy status to other drugs, medicaments and biological substances; Z91.018 Allergy to other foods; Z79.899 Other long term (current) drug therapy; W18.2XXA Fall in (into) shower or empty bathtub, initial encounter
CPT/HCPCS: 72100; 96374; 96375; 99283-25; J1170; J2060

== ENCOUNTER 2019-06-06 08:36 | Emergency (ER) | payer OTHER ==
[~2019-06-06] VITALS: Ht 167.6 cm; Wt 99.8 kg
[~2019-06-06 08:36] MED LIST changes: +Pyridium200 MG
== END 2019-06-06 10:28 | disposition home or self-care (01) ==
LOC: ER 08:36
DX: M54.5 Low back pain (principal); M54.6 Pain in thoracic spine; G89.29 Other chronic pain; J45.909 Unspecified asthma, uncomplicated; F32.9 Major depressive disorder, single episode, unspecified; K21.9 Gastro-esophageal reflux disease without esophagitis; F41.9 Anxiety disorder, unspecified; F17.200 Nicotine dependence, unspecified, uncomplicated; Z91.018 Allergy to other foods; Z88.5 Allergy status to narcotic agent; Z79.899 Other long term (current) drug therapy
CPT/HCPCS: 99283; A9270-GY

== ENCOUNTER 2019-07-01 03:38 | Emergency (ER) | payer OTHER ==
[~2019-07-01] VITALS: Ht 162.6 cm; Wt 103.9 kg
[2019-07-01] MEDS ORDERED: Nicoderm Cq1 EACH TOP (04:48)
[2019-07-01 06:06] LABS: U Amphetamine Screen Not Detected; U Barbituate Screen Not Detected; U Benzodiazapine Screen DETECTED; U Cannabinoids Screen DETECTED; U Cocaine Screen Not Detected; U Methamphetamine Screen DETECTED; U Opiates Screen DETECTED; U Phencyclidine Screen Not Detected
[2019-07-01 06:07] LABS: U Buprenorphine Screen Not Detected; U Methadone Screen DETECTED; U Oxycodone Screen Not Detected; U Propoxyphene Screen Not Detected
[2019-07-01 06:07] LABS: BASOPHILS ABSOLUTE AUTO 0.04 K/mm3 (0.00-0.23); BASOPHILS PERCENT AUTO 0 % (0-2); EOSINOPHILS ABSOLUTE AUTO 0.37 K/mm3 (0.00-0.68); EOSINOPHILS PERCENT AUTO 3 % (0-6); Hematocrit 37.4 % (33.0-51.0); Hemoglobin 12.5 g/dL (11.5-16.0); IMMATURE GRAN ABSOLUTE AUTO 0.05 K/mm3 (0.00-0.10); IMMATURE GRAN PERCENT AUTO 0 % (0-1); LYMPHOCYTES ABSOLUTE AUTO 3.14 K/mm3 (0.84-5.20); LYMPHOCYTES PERCENT AUTO 26 % (21-46); MONOCYTES ABSOLUTE AUTO 0.61 K/mm3 (0.16-1.47); MONOCYTES PERCENT AUTO 5 % (4-13); Mean Corpuscular HGB 31.8 pg (26.0-34.0); Mean Corpuscular HGB Conc 33.4 g/dL (31.5-36.5); Mean Corpuscular Volume 95 fL (80-100); Mean Platelet Volume 10.2 fL (9.1-12.4); NEUTROPHILS ABSOLUTE AUTO 7.67 K/mm3 (1.96-9.15); NEUTROPHILS PERCENT AUTO 65 % (41-73); Platelet Count 231 K/mm3 (150-400); RDW Coefficient Variation 12.7 % (11.7-14.2); RDW Standard Deviation 44.8 fL (35.1-46.3); Red Blood Cell Count 3.93 M/mm3 (3.80-5.20); White Blood Cell Count 11.88 K/mm3 (4.00-11.30)
[2019-07-01 06:28] LABS: Alanine Aminotransfer (ALT/SGP 26 U/L (12-78); Albumin, Blood 3.5 g/dL (3.4-5.0); Alk Phos 71 U/L (50-136); Anion Gap 5 mmol/L (6-16); Aspartate Aminotrans (AST/SGOT 22 U/L (12-37); Bilirubin, Total 0.3 mg/dL (0.1-1.0); Blood Urea Nitrogen 10 mg/dL (8-24); Bun/Creatinine Ratio 13.8 (12.0-20.0); CO2, Blood 27 mmol/L (21-32); Calcium, Blood 8.4 mg/dL (8.5-10.1); Chloride, Blood 106 mmol/L (98-108); Creatinine, Blood 0.73 mg/dL (0.40-1.00); Ethanol (Alcohol), Blood, Med 77 mg/dL; Globulin, Blood 3.6 g/dL (2.2-4.0); Glomerular Filtration Rate >60 (60-); Glucose, Blood 84 mg/dL (70-99); Potassium, Blood 3.6 mmol/L (3.5-5.5); Sodium, Blood 138 mmol/L (136-145); Total Protein, Blood 7.1 g/dL (6.4-8.2)
== END 2019-07-01 07:05 | disposition home or self-care (01) ==
LOC: ER 03:38
PROVIDERS: Emergency Medicine
DX: M62.838 Other muscle spasm (principal); F19.10 Other psychoactive substance abuse, uncomplicated; Z91.018 Allergy to other foods; Z88.6 Allergy status to analgesic agent; Z88.5 Allergy status to narcotic agent; Z79.899 Other long term (current) drug therapy; J45.909 Unspecified asthma, uncomplicated; F32.9 Major depressive disorder, single episode, unspecified; Z87.891 Personal history of nicotine dependence
CPT/HCPCS: 36415; 80053; 85025; 96374; 99283-25; G0480; J2060

== ENCOUNTER 2020-05-10 07:36 | Emergency (ER) | payer OTHER ==
[~2020-05-10] VITALS: Ht 162.6 cm; Wt 75.3 kg
[~2020-05-10 07:36] MED LIST changes: +Nicoderm Cq1 EACH TOP
[2020-05-10] MEDS ORDERED: BENADRYL25 MG PO (07:49)
[2020-05-10] MEDS ORDERED: MUPIROCIN1 G1 TOP (08:00)
[2020-05-10] MEDS ORDERED: Monodox100 MG PO (08:00)
== END 2020-05-10 08:26 | disposition home or self-care (01) ==
LOC: ER 07:36
DX: L03.312 Cellulitis of back [any part except buttock and flank] (principal); L03.221 Cellulitis of neck; Z79.899 Other long term (current) drug therapy; Z88.5 Allergy status to narcotic agent; Z88.6 Allergy status to analgesic agent; F17.210 Nicotine dependence, cigarettes, uncomplicated
CPT/HCPCS: 99282

== ENCOUNTER → 2020-06-05 | Outpatient (CLI) | payer OTHER ==
[~2020-06-05] MED LIST changes: +MUPIROCIN1 G1 TOP; +Monodox100 MG PO
== END | disposition home or self-care (01) ==
LOC: LAB SRC 12:50 → LAB SHORT 12:50
DX: L02.01 Cutaneous abscess of face (principal)
CPT/HCPCS: 87070; 87075; 87077; 87147; 87186; 87205

== ENCOUNTER 2021-03-14 02:44 | Emergency (ER) | payer OTHER ==
[~2021-03-14] VITALS: Ht 160 cm; Wt 71.7 kg
== END 2021-03-14 03:18 | disposition home or self-care (01) ==
LOC: ER 02:44
DX: S51.812A Laceration without foreign body of left forearm, initial encounter (principal); S51.811A Laceration without foreign body of right forearm, initial encounter; F43.20 Adjustment disorder, unspecified; J45.909 Unspecified asthma, uncomplicated; Z88.5 Allergy status to narcotic agent; Z88.8 Allergy status to other drugs, medicaments and biological substances; Z79.899 Other long term (current) drug therapy; K21.9 Gastro-esophageal reflux disease without esophagitis; F17.200 Nicotine dependence, unspecified, uncomplicated; Y04.8XXA Assault by other bodily force, initial encounter
CPT/HCPCS: 99284

== ENCOUNTER → 2021-10-15 | Outpatient (CLI) | payer OTHER ==
[2021-10-16 10:12] LABS: Candida species (DNA Probe) Negative (NEGATIVE); G. vaginalis (DNA Probe) Negative (NEGATIVE); T. vaginalis (DNA Probe) Negative (NEGATIVE)
== END | disposition home or self-care (01) ==
LOC: LAB 11:35 → LAB SHORT 11:35
PROVIDERS: Physician Assistant
DX: N89.8 Other specified noninflammatory disorders of vagina (principal)
CPT/HCPCS: 87480; 87510; 87660

== ENCOUNTER 2022-08-22 18:34 | Emergency (ER) | payer OTHER ==
[~2022-08-22] VITALS: Ht 160 cm; Wt 75.8 kg
[2022-08-22 19:00] VITALS: BP 144/82
[2022-08-22] MEDS ORDERED: EPIPEN0.3 MG/0.3 IM (19:25)
[2022-08-22] MEDS ORDERED: NEURONTIN300 MG PO (19:48)
[2022-08-22] MEDS ORDERED: DIPH50 PO (19:49)
[2022-08-22] MEDS ORDERED: IBUP600 PO (19:50)
== END 2022-08-22 19:52 | disposition home or self-care (01) ==
LOC: ER 18:34
DX: T78.1XXA Other adverse food reactions, not elsewhere classified, initial encounter (principal); Z88.6 Allergy status to analgesic agent; Z91.018 Allergy to other foods; Z79.899 Other long term (current) drug therapy; J45.909 Unspecified asthma, uncomplicated; K21.9 Gastro-esophageal reflux disease without esophagitis; F17.200 Nicotine dependence, unspecified, uncomplicated
CPT/HCPCS: 99285; A9270; J2930; J7512

== ENCOUNTER 2022-12-04 17:03 | Emergency (ER) | payer OTHER ==
[~2022-12-04] VITALS: Ht 165.1 cm; Wt 70.3 kg
[~2022-12-04 17:03] MED LIST changes: +CEPH500 PO; +EPIPEN0.3 MG/0.3 IM; +NEURONTIN300 MG PO
[2022-12-04 18:35] LABS: BASOPHILS ABSOLUTE AUTO 0.09 K/mm3 (0.00-0.23); BASOPHILS PERCENT AUTO 1 % (0-2); EOSINOPHILS ABSOLUTE AUTO 0.12 K/mm3 (0.00-0.68); EOSINOPHILS PERCENT AUTO 1 % (0-6); Hematocrit 39.5 % (33.0-51.0); Hemoglobin 13.4 g/dL (11.5-16.0); IMMATURE GRAN ABSOLUTE AUTO 0.11 K/mm3 (0.00-0.10); IMMATURE GRAN PERCENT AUTO 1 % (0-1); LYMPHOCYTES ABSOLUTE AUTO 1.45 K/mm3 (0.84-5.20); LYMPHOCYTES PERCENT AUTO 9 % (21-46); MONOCYTES ABSOLUTE AUTO 1.75 K/mm3 (0.16-1.47); MONOCYTES PERCENT AUTO 11 % (4-13); Mean Corpuscular HGB 29.5 pg (26.0-34.0); Mean Corpuscular HGB Conc 33.9 g/dL (31.5-36.5); Mean Corpuscular Volume 87 fL (80-100); Mean Platelet Volume 10.9 fL (9.1-12.4); NEUTROPHILS ABSOLUTE AUTO 13.12 K/mm3 (1.96-9.15); NEUTROPHILS PERCENT AUTO 79 % (41-73); Platelet Count 219 K/mm3 (150-400); RDW Coefficient Variation 13.5 % (11.7-14.2); RDW Standard Deviation 42.8 fL (35.1-46.3); Red Blood Cell Count 4.55 M/mm3 (3.80-5.20); White Blood Cell Count 16.64 K/mm3 (4.00-11.30)
[2022-12-04 18:59] LABS: Albumin, Blood 3.2 g/dL (3.4-5.0); Albumin/Globulin Ratio 0.8 (0.8-1.8); Bilirubin, Total 1.8 mg/dL (0.1-1.0); Calcium, Blood 8.7 mg/dL (8.5-10.1); Creatinine, Blood 0.53 mg/dL (0.40-1.00); Potassium, Blood 3.5 mmol/L (3.5-5.5); Total Protein, Blood 7.2 g/dL (6.4-8.2)
[2022-12-04 19:31] VITALS: BP 106/63
== END 2022-12-04 23:30 | disposition left against medical advice (07) ==
LOC: ER 17:03
PROVIDERS: Physician Assistant
DX: K92.1 Melena (principal); Z79.899 Other long term (current) drug therapy; Z53.21 Procedure and treatment not carried out due to patient leaving prior to being seen by health care provider
CPT/HCPCS: 74177; 80053; 85025; Q9967

== ENCOUNTER 2022-12-06 21:13 | Emergency (ER) | payer OTHER ==
[~2022-12-06] VITALS: Ht 162.6 cm; Wt 74.8 kg
[2022-12-06 22:01] LABS: Source, Urine Clean Catch
[2022-12-06 22:12] LABS: Blood, Urine 5+ (Neg); Glucose Qualitative, Urine Neg (Neg); Ketones, Urine Neg (Neg); Leukocyte Esterase, Urine 1+ (Neg); Nitrite, Urine Neg (Neg); Protein, Urine 2+ (Neg); Urobilinogen, Urine 2+ (Normal)
[2022-12-06 22:20] LABS: Appearance, Urine Hazy (Clear); Bilirubin, Urine 1+ (Neg); Color, Urine Amber (P-Yellow)
[2022-12-06 22:21] LABS: Amorphous Mod (0-Heavy); Bacteria Few /hpf; Red Blood Cells, Urine 0-2 /hpf (0-2); Squamous Epithelial Cells Few /hpf (Few); White Blood Cells, Urine 0-2 /hpf (0-5)
[2022-12-06] MEDS ORDERED: BRINTELLIX10 MG PO (23:02)
[2022-12-06] MEDS ORDERED: GABA300 (23:02)
[2022-12-06 23:04] LABS: BASOPHILS ABSOLUTE AUTO 0.06 K/mm3 (0.00-0.23); BASOPHILS PERCENT AUTO 1 % (0-2); EOSINOPHILS ABSOLUTE AUTO 0.15 K/mm3 (0.00-0.68); EOSINOPHILS PERCENT AUTO 1 % (0-6); Hematocrit 34.5 % (33.0-51.0); Hemoglobin 11.8 g/dL (11.5-16.0); IMMATURE GRAN ABSOLUTE AUTO 0.08 K/mm3 (0.00-0.10); IMMATURE GRAN PERCENT AUTO 1 % (0-1); LYMPHOCYTES ABSOLUTE AUTO 1.53 K/mm3 (0.84-5.20); LYMPHOCYTES PERCENT AUTO 14 % (21-46); MONOCYTES ABSOLUTE AUTO 1.14 K/mm3 (0.16-1.47); MONOCYTES PERCENT AUTO 11 % (4-13); Mean Corpuscular HGB 29.4 pg (26.0-34.0); Mean Corpuscular HGB Conc 34.2 g/dL (31.5-36.5); Mean Corpuscular Volume 86 fL (80-100); Mean Platelet Volume 10.3 fL (9.1-12.4); NEUTROPHILS ABSOLUTE AUTO 7.94 K/mm3 (1.96-9.15); NEUTROPHILS PERCENT AUTO 73 % (41-73); Platelet Count 248 K/mm3 (150-400); RDW Coefficient Variation 12.9 % (11.7-14.2); RDW Standard Deviation 40.5 fL (35.1-46.3); Red Blood Cell Count 4.01 M/mm3 (3.80-5.20)
[2022-12-06 23:15] VITALS: BP 116/76
[2022-12-06 23:21] LABS: Albumin, Blood 2.8 g/dL (3.4-5.0); Albumin/Globulin Ratio 0.8 (0.8-1.8); Bilirubin, Total 0.3 mg/dL (0.1-1.0); Bun/Creatinine Ratio 12.1 (12.0-20.0); Creatinine, Blood 0.66 mg/dL (0.40-1.00); Globulin, Blood 3.5 g/dL (2.2-4.0); Potassium, Blood 2.9 mmol/L (3.5-5.5); Total Protein, Blood 6.3 g/dL (6.4-8.2)
[2022-12-07] MEDS ORDERED: POTCHL20ER PO (00:27)
[2022-12-07] MEDS ORDERED: DICY20 PO (00:27)
[2022-12-07] MEDS ORDERED: AMOCLA875 PO (00:27)
== END 2022-12-07 00:35 | disposition home or self-care (01) ==
LOC: ER 21:13
PROVIDERS: Student in an Organized Health Care Education/Training Program
DX: K52.9 Noninfective gastroenteritis and colitis, unspecified (principal); E87.6 Hypokalemia; F17.210 Nicotine dependence, cigarettes, uncomplicated
CPT/HCPCS: 36415; 80053; 81001; 83605; 83690; 85025; A9270; J1170; J2405; J7030

== ENCOUNTER 2023-01-14 14:57 | Emergency (ER) | payer OTHER ==
[~2023-01-14] VITALS: Ht 162.6 cm; Wt 79.4 kg
[~2023-01-14 14:57] MED LIST changes: +AMOCLA875 PO; +BRINTELLIX10 MG PO; +DICY20 PO; +GABA300; +POTCHL20ER PO
[2023-01-14 15:00] VITALS: BP 132/86
[2023-01-14] MEDS ORDERED: CEPHALEXIN500 MG PO (17:56)
[2023-01-14] MEDS ORDERED: SULTRIDS PO (17:56)
== END 2023-01-14 18:02 | disposition home or self-care (01) ==
LOC: ER 14:57
DX: S71.112A Laceration without foreign body, left thigh, initial encounter (principal); L03.116 Cellulitis of left lower limb; X58.XXXA Exposure to other specified factors, initial encounter; Z88.8 Allergy status to other drugs, medicaments and biological substances; Z88.6 Allergy status to analgesic agent; Z88.5 Allergy status to narcotic agent; Z91.018 Allergy to other foods; Z79.899 Other long term (current) drug therapy; J45.909 Unspecified asthma, uncomplicated; K21.9 Gastro-esophageal reflux disease without esophagitis; F17.200 Nicotine dependence, unspecified, uncomplicated
CPT/HCPCS: 99283; A9270

== ENCOUNTER → 2024-07-10 | Outpatient (CLI) | payer OTHER ==
[~2024-07-10] MED LIST changes: +CEPHALEXIN500 MG PO
[2024-07-17 10:49] LABS: HPV HIGH RISK BY TMA Not Detected; HPV SOURCE Cervical/Vag
== END ==
LOC: LAB SHORT 09:28 → LAB 09:28
PROVIDERS: Obstetrics & Gynecology
DX: Z01.419 Encounter for gynecological examination (general) (routine) without abnormal findings (principal)
CPT/HCPCS: 87624; G0123

== ENCOUNTER → 2024-11-28 | Outpatient (CLI) | payer OTHER | LOC: LAB SHORT 10:40 → LAB 10:40 | DX: R30.0 Dysuria (principal) | CPT/HCPCS: 87086 ==